=== PATIENT | female | born 1990 | race Caucasian/White ===

== ENCOUNTER 2016-11-16 12:59 | Emergency (ER) | payer OTHER ==
[~2016-11-16] VITALS: Ht 165.1 cm; Wt 57.7 kg
[~2016-11-16 12:59] MED LIST: IBUP-1222 PO; PREN1TAB60 PO
[2016-11-16 13:16] VITALS: BP 107/68
[2016-11-16 14:19] LABS: ASPARTATE AMINO TRANSFERASE 18 U/L (15-37); BLOOD UREA NITROGEN 20 mg/dL (7-18)
[2016-11-16 14:38] LABS: HIV 1&2 ANTIBODY SCREEN Nonreactive (Nonreactive); HIV-1 p24 ANTIGEN Nonreactive (Nonreactive)
[2016-11-18 09:46] LABS: HEP B SURF. AB > 1000.0 mIU/mL (0.0-10.0)
[2016-11-18 10:24] LABS: HEPATITIS C VIRUS ANTIBODY Nonreactive (Nonreactive)
== END 2016-11-16 13:57 | disposition home or self-care (01) ==
LOC: ED 13:51
DX: B99.8 Other infectious disease (principal); Z79.4 Long term (current) use of insulin
CPT/HCPCS: 36415; 80053; 85025; 86703; 86705; 86706; 86803; 87340; 87899; 99284; G0435

== ENCOUNTER 2018-01-14 00:46 | Inpatient (IN) | payer OTHER ==
[~2018-01-14] VITALS: Ht 165.1 cm; Wt 72.7 kg
[2018-01-14] MEDS ORDERED: FENTANYL/BUPIV./NS/PF 250 ML EPIDCONT SCH ×2 (00:58→01:14)
[2018-01-14] MEDS ORDERED: FENTANYL PF 100 MCG/2ML ONE (01:11)
[2018-01-14] MEDS ORDERED: LACTATED RINGERS 1,000 ML IV SCH ×2 (01:14→01:26)
[2018-01-14] MEDS ORDERED: D5%-LACTATED RINGERS 1,000 ML IV SCH (01:26)
[2018-01-14] MEDS ORDERED: OXYTOCIN 30U/ 0.9% NaCL 500ML 500 ML IV ONE (01:26)
[2018-01-14] MEDS ORDERED: OXYTOCIN 30U/ 0.9% NaCL 500ML 500 ML ONE ×2 (01:28→03:26)
[2018-01-14] MEDS ORDERED: MISOPROSTOL 200 MCG TABLET ONE (01:29)
[2018-01-14] MEDS ORDERED: EPHEDRINE 50 MG/ML, 1ML IVPush PRN (01:30)
[2018-01-14] MEDS ORDERED: LACTATED RINGERS 1,000 ML IVBOLUS PRN (01:30)
[2018-01-14] MEDS ORDERED: PENICILLIN GK 5,000,000 UNITS in SODIUM CHLORIDE 0.9% 100 ML IVPB ONE (01:30)
[2018-01-14] MEDS ORDERED: NALOXONE 0.4 MG/ML, 1ML IVPush PRN (01:30)
[2018-01-14] MEDS ORDERED: ONDANSETRON 2MG/ML, 2ML IVPush PRN (01:30)
[2018-01-14] MEDS ORDERED: FENTANYL PF 100 MCG/2ML IV PRN (01:30)
[2018-01-14] MEDS ORDERED: CALCIUM CARBONATE 500 MG TAB.CHEW PO PRN ×2 (01:30→02:00)
[2018-01-14] MEDS ORDERED: FENTANYL PF 100 MCG/2ML IVPush PRN (01:30)
[2018-01-14] MEDS ORDERED: LIDOCAINE/PF 1%, 30ML ONE (01:33)
[2018-01-14] MEDS: OXYTOCIN 30U/ 0.9% NaCL 500ML 500 ML IV SCH ×2 (01:48→11:48)
[2018-01-14 01:51] LABS: BASOPHILS # (AUTO) 0.05 x10^3/uL (0-0.1); BASOPHILS % (AUTO) 0 % (0-1); EOSINOPHILS # (AUTO) 0.24 x10^3/uL (0-0.4); EOSINOPHILS % (AUTO) 2 % (1-7); LYMPHOCYTES # (AUTO) 2.75 x10^3/uL (1-3.4); LYMPHOCYTES % (AUTO) 18 % (22-44); MD NO; MEAN CORPUSCULAR HEMOGLOBIN 32.6 pg (27.0-34.8); MEAN CORPUSCULAR HGB CONC 34.3 g/dL (32.4-35.8); MEAN CORPUSCULAR VOLUME 95.3 fL (80-100); MEAN PLATELET VOLUME 9.5 fL (7.4-10.4); MONOCYTES # (AUTO) 1.23 x10^3/uL (0.2-0.8); MONOCYTES % (AUTO) 8 % (2-9); NEUTROPHILS # (AUTO) 11.28 x10^3/uL (1.8-6.8); NEUTROPHILS % (AUTO) 73 % (42-75); PLATELET COUNT 181 x10^3/uL (130-400); RED BLOOD COUNT 4.42 x10^6/uL (3.82-5.3); RED CELL DISTRIBUTION WIDTH 13.8 % (9.6-15.2)
[2018-01-14] MEDS ORDERED: BUPIVACAINE 0.25% ONE (01:55)
[2018-01-14] MEDS ORDERED: ONDANSETRON 2MG/ML, 2ML IV PRN (02:00)
[2018-01-14] MEDS ORDERED: DIPH,PERTUSS(ACELL),TET VAC/PF NC IM-VACC PRN (02:00)
[2018-01-14] MEDS ORDERED: RHOGAM FROM BLOOD BANK 1 NOTE EA IM/IV ONE (02:00)
[2018-01-14] MEDS ORDERED: MAGNESIUM HYDROXIDE 8%, 30ML UDC PO PRN (02:00)
[2018-01-14] MEDS ORDERED: MISOPROSTOL 200 MCG TABLET PR PRN (02:00)
[2018-01-14] MEDS ORDERED: MEASLES,MUMPS&RUBELLA VACC/PF 0.5 ML SQ PRN (02:00)
[2018-01-14] MEDS ORDERED: ACETAMINOPHEN 325 MG TABLET PO PRN ×2 (02:00)
[2018-01-14] MEDS ORDERED: OXYcodone/APAP 5/325MG TABLET PO PRN ×2 (02:00)
[2018-01-14] MEDS ORDERED: TERBUTALINE 1 MG/ML, 1ML ONE (02:39)
[2018-01-14] MEDS ORDERED: ONDANSETRON 4 MG TABLET ONE (04:18)
[2018-01-14] MEDS ORDERED: ONDANSETRON ODT 4 MG PO ONE (04:30)
[2018-01-14] MEDS ORDERED: PENICILLIN GK 2,500,000 UNITS in DEXTROSE 5% 100 ML IVPB SCH (05:30)
[2018-01-14 05:45] VITALS: BP 112/58
[2018-01-14 08:00] VITALS: BP 108/65
[2018-01-14] MEDS: PRENATAL VIT/IRON/FA 1 EACH TABLET PO SCH (09:44)
[2018-01-14] MEDS: IBUPROFEN 600 MG TABLET PO PRN ×2 (09:44→17:06)
[2018-01-14] MEDS: DOCUSATE 100 MG CAPSULE PO PRN (09:44)
[2018-01-14 11:09] LABS: BASOPHILS # (AUTO) 0.02 x10^3/uL (0-0.1); BASOPHILS % (AUTO) 0 % (0-1); EOSINOPHILS % (AUTO) 1 % (1-7); LYMPHOCYTES # (AUTO) 2.04 x10^3/uL (1-3.4); LYMPHOCYTES % (AUTO) 11 % (22-44); MD NO; MEAN CORPUSCULAR HEMOGLOBIN 31.9 pg (27.0-34.8); MEAN CORPUSCULAR HGB CONC 33.8 g/dL (32.4-35.8); MEAN CORPUSCULAR VOLUME 94.5 fL (80-100); MEAN PLATELET VOLUME 9.8 fL (7.4-10.4); MONOCYTES # (AUTO) 1.27 x10^3/uL (0.2-0.8); MONOCYTES % (AUTO) 7 % (2-9); NEUTROPHILS # (AUTO) 14.49 x10^3/uL (1.8-6.8); NEUTROPHILS % (AUTO) 81 % (42-75); PLATELET COUNT 174 x10^3/uL (130-400); RED CELL DISTRIBUTION WIDTH 13.4 % (9.6-15.2)
[2018-01-14 12:00] VITALS: BP 101/61
[2018-01-14 15:30] VITALS: BP 112/67
[2018-01-14 19:35] VITALS: BP 112/70
[2018-01-15 00:50] VITALS: BP 100/64
[2018-01-15 07:10] VITALS: BP 104/68
[2018-01-15] MEDS: PRENATAL VIT/IRON/FA 1 EACH TABLET PO SCH (09:00)
[2018-01-15] MEDS: DOCUSATE 100 MG CAPSULE PO PRN (09:48)
== END 2018-01-15 12:10 | disposition home or self-care (01) | DRG 775 ==
LOC: LDOP 00:46 → LDIP 00:59 → 2NW 05:05
PROVIDERS: ADMIT Obstetrics & Gynecology; ATTEND Obstetrics & Gynecology
PROC: 10E0XZZ Delivery of Products of Conception, External Approach (ICD-10-PCS; principal; 2018-01-14)
PROC: 10907ZC Drainage of Amniotic Fluid, Therapeutic from Products of Conception, Via Natural or Artificial Opening (ICD-10-PCS; 2018-01-14)
PROC: 3E0R3BZ Introduction of Anesthetic Agent into Spinal Canal, Percutaneous Approach (ICD-10-PCS; 2018-01-14)
PROC: 00HU33Z Insertion of Infusion Device into Spinal Canal, Percutaneous Approach (ICD-10-PCS; 2018-01-14)
DX: O99.824 Streptococcus B carrier state complicating childbirth (principal); Z37.0 Single live birth; Z3A.41 41 weeks gestation of pregnancy; O69.81X0 Labor and delivery complicated by cord around neck, without compression, not applicable or unspecified
CPT/HCPCS: 36415; 82803; 85025; 86850; 86900; G0378; J2540; J3010; J3490; Q0162; J2590; J7120

== ENCOUNTER → 2020-08-08 | Outpatient (CLI) | payer OTHER ==
[2020-08-08 10:00] LABS: BASOPHILS % (AUTO) 0 % (0-1); EOSINOPHILS % (AUTO) 1 % (1-7); LYMPHOCYTES % (AUTO) 19 % (22-44); MEAN CORPUSCULAR HEMOGLOBIN 32.3 pg (27.0-34.8); MEAN CORPUSCULAR HGB CONC 33.9 g/dL (32.4-35.8); MONOCYTES % (AUTO) 6 % (2-9); NEUTROPHILS % (AUTO) 73 % (42-75); PLATELET COUNT 175 x10^3/uL (130-400); RED BLOOD COUNT 4.29 x10^6/uL (3.82-5.3); RED CELL DISTRIBUTION WIDTH 13.3 % (9.6-15.2)
[2020-08-08 10:02] LABS: MD NO
== END | disposition home or self-care (01) ==
LOC: LAB 08:56
PROVIDERS: ATTEND Obstetrics & Gynecology
DX: Z34.80 Encounter for supervision of other normal pregnancy, unspecified trimester (principal); Z3A.00 Weeks of gestation of pregnancy not specified
CPT/HCPCS: 36415; 82950; 85025; 86592; 86850; 86900

== ENCOUNTER → 2020-10-11 | Outpatient (CLI) | payer OTHER | END | disposition home or self-care (01) | LOC: LAB 10:45 | PROVIDERS: ATTEND Obstetrics & Gynecology | DX: Z34.80 Encounter for supervision of other normal pregnancy, unspecified trimester (principal); Z3A.00 Weeks of gestation of pregnancy not specified | CPT/HCPCS: 87081 ==

== ENCOUNTER 2020-11-08 17:36 | Inpatient (IN) | payer OTHER ==
[~2020-11-08] VITALS: Ht 165.1 cm; Wt 70.5 kg
[2020-11-08] MEDS ORDERED: OXYTOCIN 30U/ 0.9% NaCL 500ML 500 ML ONE (17:53)
[2020-11-08 18:00] VITALS: BP 115/67
[2020-11-08] MEDS ORDERED: PENICILLIN GK 5,000,000 UNITS in DEXTROSE 5% 100 ML IVPB ONE (18:00)
[2020-11-08] MEDS: D5%-LACTATED RINGERS 1,000 ML IV SCH (18:00)
[2020-11-08] MEDS ORDERED: TERBUTALINE 1 MG/ML, 1ML IVPush PRN (18:00)
[2020-11-08] MEDS ORDERED: TERBUTALINE 1 MG/ML, 1ML SQ PRN (18:00)
[2020-11-08] MEDS ORDERED: LACTATED RINGERS 1,000 ML IV SCH (18:00)
[2020-11-08] MEDS ORDERED: ONDANSETRON 2MG/ML, 2ML IVPush PRN (18:00)
[2020-11-08] MEDS ORDERED: FENTANYL PF 100 MCG/2ML IVPush PRN (18:00)
[2020-11-08] MEDS ORDERED: OXYTOCIN 30U/ 0.9% NaCL 500ML 500 ML IV ONE (18:00)
[2020-11-08] MEDS ORDERED: PLEASE ENTER HEIGHT AND WEIGHT MC SCH (18:30)
[2020-11-08 18:36] LABS: BASOPHILS % (AUTO) 1 % (0-1); EOSINOPHILS % (AUTO) 1 % (1-7); LYMPHOCYTES % (AUTO) 17 % (22-44); MEAN CORPUSCULAR HEMOGLOBIN 32.1 pg (27.0-34.8); MEAN CORPUSCULAR HGB CONC 33.9 g/dL (32.4-35.8); MEAN PLATELET VOLUME 9.8 fL (7.4-10.4); MONOCYTES % (AUTO) 6 % (2-9); NEUTROPHILS % (AUTO) 76 % (42-75); PLATELET COUNT 200 x10^3/uL (130-400); RED BLOOD COUNT 4.63 x10^6/uL (3.82-5.3)
[2020-11-08] MEDS ORDERED: NEWBORN KIT ONE (19:22)
[2020-11-08] MEDS ORDERED: LIDOCAINE 1%, 20ML ONE (19:23)
[2020-11-08] MEDS ORDERED: MISOPROSTOL 200 MCG TABLET ONE (19:23)
[2020-11-08] MEDS ORDERED: FENTANYL PF 100 MCG/2ML ONE (19:43)
[2020-11-08] MEDS ORDERED: ONDANSETRON 2MG/ML, 2ML ONE (19:43)
[2020-11-08] MEDS ORDERED: FENTANYL/BUPIV./NS/PF 250 ML EPIDCONT ONE (20:17)
[2020-11-08] MEDS ORDERED: IBUPROFEN 600 MG TABLET ONE (20:43)
[2020-11-08] MEDS: IBUPROFEN 600 MG TABLET PO PRN (20:48)
[2020-11-08] MEDS ORDERED: ACETAMINOPHEN 325 MG TABLET PO PRN ×2 (21:00)
[2020-11-08] MEDS: OXYTOCIN 30U/ 0.9% NaCL 500ML 500 ML IV SCH (21:00)
[2020-11-08] MEDS ORDERED: OXYcodone/APAP 5/325MG TABLET PO PRN ×2 (21:00)
[2020-11-08] MEDS ORDERED: SIMETHICONE 80 MG CHEW TAB PO PRN (21:00)
[2020-11-08] MEDS ORDERED: METHYLERGONOVINE 0.2 MG/ML IM PRN (21:00)
[2020-11-08] MEDS ORDERED: METOCLOPRAMIDE 5 MG/ML, 2ML IV PRN (21:00)
[2020-11-08] MEDS ORDERED: RHOGAM FROM BLOOD BANK 1 NOTE EA IM/IV ONE (21:00)
[2020-11-08] MEDS ORDERED: ONDANSETRON 2MG/ML, 2ML IV PRN (21:00)
[2020-11-08] MEDS ORDERED: MISOPROSTOL 200 MCG TABLET PR PRN (21:00)
[2020-11-08] MEDS ORDERED: PENICILLIN GK 2,500,000 UNITS in DEXTROSE 5% 100 ML IVPB SCH (22:00)
[2020-11-08 23:00] VITALS: BP 106/61
[2020-11-09] MEDS: D5%-LACTATED RINGERS 1,000 ML IV SCH (02:00)
[2020-11-09 02:44] VITALS: BP 95/58
[2020-11-09 05:30] LABS: BASOPHILS % (AUTO) 0 % (0-1); EOSINOPHILS % (AUTO) 1 % (1-7); LYMPHOCYTES % (AUTO) 19 % (22-44); MEAN CORPUSCULAR HEMOGLOBIN 32.2 pg (27.0-34.8); MEAN CORPUSCULAR HGB CONC 34.1 g/dL (32.4-35.8); MEAN PLATELET VOLUME 9.8 fL (7.4-10.4); MONOCYTES % (AUTO) 8 % (2-9); NEUTROPHILS % (AUTO) 73 % (42-75); PLATELET COUNT 175 x10^3/uL (130-400); RED BLOOD COUNT 3.85 x10^6/uL (3.82-5.3)
[2020-11-09] MEDS: IBUPROFEN 600 MG TABLET PO PRN ×2 (06:29→16:51)
[2020-11-09] MEDS: OXYTOCIN 30U/ 0.9% NaCL 500ML 500 ML IV SCH ×2 (07:00→17:00)
[2020-11-09 07:50] VITALS: BP 107/71
[2020-11-09] MEDS: PRENATAL VIT/IRON/FA 1 EACH TABLET PO SCH (09:00)
[2020-11-09] MEDS: DOCUSATE 100 MG CAPSULE PO PRN (10:40)
[2020-11-09 12:10] VITALS: BP 98/65
[2020-11-09 16:10] VITALS: BP 94/58
[2020-11-09 19:15] VITALS: BP 93/57
[2020-11-10] MEDS: IBUPROFEN 600 MG TABLET PO PRN (00:52)
[2020-11-10] MEDS: DOCUSATE 100 MG CAPSULE PO PRN ×2 (00:53→08:20)
[2020-11-10] MEDS: OXYTOCIN 30U/ 0.9% NaCL 500ML 500 ML IV SCH (03:00)
[2020-11-10 08:20] VITALS: BP 104/68
[2020-11-10] MEDS: PRENATAL VIT/IRON/FA 1 EACH TABLET PO SCH (08:20)
== END 2020-11-10 10:22 | disposition home or self-care (01) | DRG 807 ==
LOC: LDOP 17:36 → LDIP 17:48 → 2NW 22:38
PROVIDERS: ADMIT Obstetrics & Gynecology; ATTEND Obstetrics & Gynecology
PROC: 10E0XZZ Delivery of Products of Conception, External Approach (ICD-10-PCS; principal; 2020-11-09)
PROC: 3E0R3BZ Introduction of Anesthetic Agent into Spinal Canal, Percutaneous Approach (ICD-10-PCS; 2020-11-09)
PROC: 00HU33Z Insertion of Infusion Device into Spinal Canal, Percutaneous Approach (ICD-10-PCS; 2020-11-09)
PROC: 3E0234Z Introduction of Serum, Toxoid and Vaccine into Muscle, Percutaneous Approach (ICD-10-PCS; 2020-11-09)
DX: O69.81X0 Labor and delivery complicated by cord around neck, without compression, not applicable or unspecified (principal); Z37.0 Single live birth; O99.824 Streptococcus B carrier state complicating childbirth; Z20.822 Contact with and (suspected) exposure to COVID-19; Z3A.39 39 weeks gestation of pregnancy; Z82.49 Family history of ischemic heart disease and other diseases of the circulatory system; Z83.3 Family history of diabetes mellitus; O26.893 Other specified pregnancy related conditions, third trimester; Z67.11 Type A blood, Rh negative
CPT/HCPCS: 36415; 85025; 85461; 86592; 86850; 86900; 87635; G0378; J2540; J2790; J7120